=== PATIENT | female | born 1950 | race Hispanic/Latino ===

== ENCOUNTER 2023-08-30 10:55 | Inpatient (IN) | payer OTHER ==
[2023-08-30 19:07] VITALS: BMI 56.8
[2023-08-30 20:15] LABS: Specific Gravity 1.011 (1.005-1.030); Urine Bacteria <20 /HPF (<20); Urine Bilirubin NEGATIVE (Negative); Urine Blood Negative (Negative); Urine Clarity Clear (Clear); Urine Color Light-Yellow (Yellow); Urine Glucose NEGATIVE (Negative); Urine Protein NEGATIVE (Negative); Urine RBC <5 /HPF (None Seen); Urine Urobilinogen Normal (Normal); Urine pH 6.5 (5.0-7.0)
[2023-08-30] MEDS: NITROFURAN MACRO 100 MG CAP PO SCH (20:57)
[2023-08-30] MEDS: ESZOPICLONE 1 MG TAB PO SCH (20:58)
[2023-08-30] MEDS: PREGABALIN 75 MG CAP PO SCH (20:58)
[2023-08-30] MEDS: DOCUSATE NA 100 MG CAP PO SCH (20:58)
[2023-08-30] MEDS: PRAMIPEXOLE 0.25 MG TAB PO SCH (20:58)
[2023-08-31] MEDS: ENOXAPARIN 30 MG/0.3 ML SQ ONE (01:43)
[2023-08-31] MEDS: Enoxaparin 120 MG/0.8 ML SYR SQ ONE (01:43)
[2023-08-31 05:00] LABS: Absolute Lymphocytes (CBC) 1.2 K/uL (0.7-4.9); Hematocrit 25.6 % (36.0-45.0); Lymphocytes % 33.1 % (15.3-44.8); MCV 72.7 fL (80-100); MPV 7.2 fL (7.6-11.3); Platelets 219 thou/uL (152-406); RBC Red Blood Cell Count 3.52 M/uL (3.86-4.86)
[2023-08-31] MEDS: PANTOPRAZOLE 40MG TABLET PO SCH (05:08)
[2023-08-31 05:27] LABS: Albumin 2.4 g/dL (3.4-5.0); Magnesium 2.1 mg/dL (1.6-2.4); Potassium 3.7 mEq/L (3.5-5.1); Prealbumin 11.4 mg/dL (20-40)
[2023-08-31] MEDS ORDERED: POLYETHYL GLY 3350 17 GM/DOSE PO PRN (05:34)
[2023-08-31] MEDS ORDERED: BISACODYL 10 MG RECTAL SUPP PR PRN (05:34)
[2023-08-31] MEDS ORDERED: ENOXAPARIN 100 MG/ML SYR SQ SCH (08:00)
[2023-08-31] MEDS ORDERED: ENOXAPARIN 60 MG/0.6 ML SQ SCH (08:00)
[2023-08-31] MEDS: DOCUSATE NA/SENNA CONC 1 TAB PO SCH (08:05)
[2023-08-31] MEDS: oxyBUTYnin chloride 5 MG TAB PO SCH (08:05)
[2023-08-31] MEDS: APIXABAN 2.5 MG TABLET PO SCH ×2 (11:51→20:25)
[2023-08-31] MEDS: HYDROCODONE/APAP 10/325 TAB PO PRN (11:51)
[2023-08-31] MEDS ORDERED: GABAPENTIN 100 MG CAP PO SCH (20:00)
[2023-08-31] MEDS: MAGNESIUM OXIDE 400 MG TAB PO SCH (20:25)
--- NOTE | 2023-08-31 22:29 | RAD REPORT ---
EXAM DESCRIPTION: RAD - Foot Left 2 View - 08/31/2023 4:19 pm CLINICAL HISTORY: Left Foot pain FINDINGS: A limited two-view series was obtained. Bones are markedly osteoporotic. Cortical irregularity involves the bases of the fourth and fifth metatarsals. This could be secondary to osteomyelitis, inflammatory arthritis or probably less likely fracture. Further evaluation could be obtained with CT or MRI
[2023-08-31] MEDS: ONDANSETRON 4 MG (ODT) TAB PO PRN (23:44)
--- NOTE | 2023-09-01 00:29 | HP ---
Date of Admission: 08/30/2023 Time Of Service: 1:10 p.m. Chief Complaint: Urinary tract infection and became weak. History Of Present Illness: Ms. Mccarthy is a 73-year-old, right-handed, patient with depression, arthr itis, diabetes mellitus type 2, gastritis, dyslipidemia, osteoarthritis, chronic back pain, diabetes, hypertension, who fell in April 2023 and suffered a femur fracture. She was seen at [facility] and had surgery. She was put at nonweightbearing status and is discharged home to [facility] in [place]. She eventually discharged from there a week ago and went bhavin e. However, at home she was very significantly weak and she lives on her own and was unable to perfo rm ordinary activities of daily living safely. As a result, she had difficulty just mobilizing, gett ing from her recliner to mobilize wheelchair and suffered a fall out of her recliner. Emergency serv ices evaluated the patient. At that time, she felt her leg to be numb. She was seen at [facility] on August 28. Evaluation showed hypertension, acute cystitis with hematuria. She was carmine edin with Rocephin IV and had monitoring for encephalopathy related to the urinary tract infection. H er trauma series imaging showed no new fractures or unexpected findings. However, her Doppler study in the left lower extremity identified a deep vein thrombus and she was placed on Lovenox, which will be continued for 4 weeks and then transitioned to Xarelto. The alternative is Eliquis 5 mg twice da jaiden to continue for the 4 weeks. Given the low hemoglobin and hematocrit, she will require very clos e monitoring for the possibility of blood loss requiring transfusion. In addition, she has requireme nts for monitoring her blood glucose with calcium and possibility of worsening renal function. Prior to the patient's fall and fracture, she was independent with mobilization transfers and activities o f daily living. However, currently she requires moderate to maximum assistance for ordinary activiti es of daily living, for transferring, mobilizing, and dressing upper and lower body. As a result of the need for management of her multiple medical conditions and daily evaluation by physician and the need for physical therapy, she was determined to be appropriate candidate for inpatient rehabilitatio n, is therefore admitted for physical, occupational, and speech therapy. Past Medical History: As noted above in addition to left distal femur fracture on 05/15, status post open reduction and internal fixation. Deep vein thrombosis of the left lower extremity, morbid obes ity, chronic back pain, chronic peripheral neuropathy, overactive bladder, osteoarthrosis with bilate ral total knee arthroplasty, osteoarthrosis of the left hip, and peripheral venous insufficiency. Allergies: NO KNOWN DRUG ALLERGIES. Medications: Tylenol Extra Strength 500 mg 6 hours as needed, Eliquis is now 5 mg twice daily, Dulco lax suppository 10 mg per rectum as needed, Flexeril 10 mg twice daily as needed, Senokot S 2 twice d aily, Lunesta 3 mg at bedtime, gabapentin 100 mg twice daily, [place] 10/325 twice daily as needed, lid ocaine patch apply 2 topically daily, Milk of Magnesia 30 mL every 6 hours as needed, magnesium oxide 400 mg twice daily, Macrobid 100 mg twice daily, Zofran 4 mg every 6 hours as needed, Ditropan 10 mg daily, Protonix 40 mg daily, Mirapex 0.25 mg at bedtime, Lyrica 75 mg twice daily. Family History: Noncontributory. Social History: No alcohol, tobacco, or drug use. Patient lives alone, single family home. Laboratory Studies: White blood cell count 3.6, hemoglobin 8.4, platelets 219. Sodium 145, potassiu m 3.7, chloride 115, carbon dioxide 23, BUN 12, creatinine 0.67, glucose 109, calcium 7.7. Magnesium 2.1. Albumin 2.4, prealbumin 11.4. Urinalysis is completely normal. X-ray/imaging: She has a foot x-ray on the left that results are pending. Review of Systems: She did note foot pain more on the left. She does have x-ray with results pending. Some myalgias, a rthralgias. No rash. No current fevers or chills. Frequent urination is reported and she is being treated for that. No active psychiatric issues are uncontrolled and no other positives on a 10 point systems review. Current Level Of Functioning: Setup assistance for eating, oral hygiene. Dependent for toilet hygie ne. Bathing also dependent. Upper body dressing, moderate assistance. Lower body dressing, maximum assistance. Donning and doffing footwear, maximal assistance. Rolling right to left and left to ri ght, she is independent. For sit to stand and sit to lying, moderate assistance. Dependent for jesus r transfer to toilet as well. Ambulation with a rolling walker, maximum assistance, ambulated 1 foot . Physical Examination: Vital Signs: Blood pressure 178/56, pulse 69, respiratory rate of 17, temperature 97.2, oxygen satur ation 96%. Weight 321 pounds, height 5 feet 3 inches, BMI 56.9. General: Ms. Mccarthy is sitting in a chair, getting ready to do therapy. She did have some pain in th e left hip and in her feet and noted she had some imaging studies pending. She is morbidly obese. HEENT: Otherwise, she appears normocephalic and atraumatic. Sclerae anicteric. Oropharynx is moist . Neck: Supple. She has mild edema in the lower extremities and has very obese abdomen. Neurological: She has some give away in the left because of pain, unable to stand for short while an d has pain in the feet. Rehabilitation And Medical Assessment And Plan: Ms. Mccarthy is a 73-year-old patient with rehabilitati on impairment category 20, miscellaneous. Her impairment group code is 16, debility, noncardiac, non pulmonary. Her etiologic diagnosis is cystitis with hematuria. Comorbidities are anemia, arthritis, morbid obesity, chronic back pain, decreased mobility, decreased physical functioning, diabetes edin itus type 2, deep vein thrombosis, falls, gastroesophageal reflux disease, dyslipidemia, hypertension , osteoarthritis, peripheral neuropathy, restless legs syndrome, spinal stenosis, urinary incontinenc e, urinary tract infection, diffuse weakness. Plan: 1.She will have physical, occupational, and maybe speech therapy for 3.5 hours, 5 of 7 days. 2.We will continue with Eliquis 5 mg twice daily for her deep vein thrombosis, Dulcolax as needed fo r constipation, Flexeril for muscle spasms, Lunesta for insomnia. Instead of gabapentin, she will co ntinue on the pregabalin 75 mg twice daily and the dose of that medication will be adjusted as needed , Ditropan for urinary retention, Mirapex for restless legs syndrome, Macrobid for urinary tract infe ction, magnesium for her muscle relaxation, and lidocaine patches in the left hip and foot. Comorbidities That Are Impacting Her Re Rehabilitation: She does have morbid obesity making very dif ficult for easy standing and transfer and for healing. However, she is very willing to work hard and will have 2 person transfer as appropriate, will work on strengthening lower extremity with the weig htbearing status being touchdown at this point. She does have a deep vein thrombus and is on anticoa gulation. She will require hemoglobin and hematocrit monitoring and she has low hemoglobin as there is a high risk of a bleeding. She will have the pregabalin instead of the gabapentin for neuropathic pain. Rehab Specific Plan: 1.Ms. Mccarthy will have physical, occupational, and if need be speech therapy for 3.5 hours, 5 of 7 da ys. She will be with the goal of transferring from bed to chair, to toilet with minimum assistance t o mobilize a wheelchair 250 feet with min assist to ambulate at least household distances of 50 feet with supervision or minimal assistance. She may not be able to go up and down steps at this point. 2.She will have if need be speech therapy to help with cognitive functioning to help with safety gerald reness and managing medications as appropriate and additional followups as well. Ms. Mccarthy has a good understanding of the process of admission to the inpatient rehabilitation facili and how she may benefit from physical, occupational, and if need be, speech therapy. As dependent on how she is doing, the assistance of the infectious disease service, the pulmonary service and ort hopedic service may be required. Given her complex medical condition and risk of further complicatio ns, rehabilitation cannot be safely or affectively performed at a lower level facility such as [facility]. Barriers To Discharge: She is currently very morbidly obese and will likely be very difficult to man age all of her activities at home without risk of falling due to weakness in her lower extremities. Also, she has the need for ongoing anticoagulation that will likely last longer than she is in rehabi litation and so that will have to be continued outpatient or, depending on how she is doing, at [facility] facility. Length Of Stay: 14 days. Disposition: Home, but if need be, she may have to go to a fci facility. Prognosis: Fair. Rehabilitation Goals: 1.Be able to dress upper and lower body, toileting, showering, donning and doffing footwear with sup ervision or minimum assistance. 2.To be able to ambulate with minimum assistance 50 feet with a rolling walker. 3.To be able to propel a wheelchair with supervision 150 feet. 4.She may not be able to go up and down steps at the end of her evaluation. 5.She should be able to perform cognitive functioning independently. 6.The above goals were reviewed with Ms. Mccarthy and she is in agreement. By signing this document, I acknowledge I personally performed a full physical examination on Ms. Nicolas leslie no later than 24 hours after admission to the inpatient rehabilitation facility and determined wes t she is able to tolerate the above course of treatment at an intensive level for reasonable period o f time. A detailed individualized plan of care for her will be completed by hospital day 4 based on the preadmission screen, history and physical, and therapy evaluations. ABDI Voice ID: [id number]
[2023-09-01] MEDS: LIDOCAINE 4% PATCH TOP SCH (08:26)
[2023-09-01] MEDS: FE SULF/FA/VIT B COMP & C TAB PO SCH (08:53)
[2023-09-01] MEDS: FERROUS SULFATE 325 MG TAB PO SCH (08:53)
[2023-09-01] MEDS: ACETAMINOPHEN 500 MG TAB PO PRN (12:45)
--- NOTE | 2023-09-01 13:12 | P.RH.PN ---
Estimated Length of Stay: 16 Expected Discharge Date: 09/15/23 Discharge Disposition Plan: Home Family Support: Yes Penitentiary Goal: Mobility, Transfers, Self Care Vital Signs: Last Vital Signs Temp 97.0 F 09/01/23 08:00 Pulse 77 09/01/23 08:00 Resp 18 09/01/23 08:00 BP 111/56 L 09/01/23 08:00 Pulse Ox 96 09/01/23 08:00 Laboratory: Laboratory Last Values WBC 3.60 thou/uL (4.3-10.9) L 08/31/23 04:26 RBC 3.52 M/uL (3.86-4.86) L 08/31/23 04:26 Hgb 8.4 g/dL (12.0-15.0) L 08/31/23 04:26 Hct 25.6 % (36.0-45.0) L 08/31/23 04:26 MCV 72.7 fL (80-100) L 08/31/23 04:26 MCH 23.9 pg (27.0-35.0) L 08/31/23 04:26 MCHC 32.8 g/dL (32.0-36.0) 08/31/23 04:26 RDW 19.0 % (12.1-15.2) H 08/31/23 04:26 Plt Count 219 thou/uL (152-406) 08/31/23 04:26 MPV 7.2 fL (7.6-11.3) L 08/31/23 04:26 Neutrophils % 58.0 % (41.7-73.7) 08/31/23 04:26 Lymphocytes % 33.1 % (15.3-44.8) 08/31/23 04:26 Monocytes % 7.9 % (3.3-12.3) 08/31/23 04:26 Eosinophils % 0.2 % (0-4.4) 08/31/23 04:26 Basophils % 0.8 % (0-1.3) 08/31/23 04:26 Absolute Neutrophils 2.1 K/uL (1.8-8.0) 08/31/23 04:26 Absolute Lymphocytes 1.2 K/uL (0.7-4.9) 08/31/23 04:26 Absolute Monocytes 0.3 K/uL (0.1-1.3) 08/31/23 04:26 Absolute Eosinophils 0.0 K/uL (0-0.5) 08/31/23 04:26 Absolute Basophils 0.0 K/uL (0-0.5) 08/31/23 04:26 Sodium 145 mEq/L (136-145) 08/31/23 04:26 Potassium 3.7 mEq/L (3.5-5.1) 08/31/23 04:26 Chloride 115 mEq/L (98-107) H 08/31/23 04:26 Carbon Dioxide 23 mEq/L (21-32) 08/31/23 04:26 Anion Gap 10.7 mEq/L (5.0-15.0) 08/31/23 04:26 BUN 12 mg/dL (7-18) 08/31/23 04:26 Creatinine 0.67 mg/dL (0.55-1.02) 08/31/23 04:26 Est GFR (CKD-EPI) 91 ml/min (=/>90) 08/31/23 04:26 Glucose 109 mg/dL (74-106) H 08/31/23 04:26 Calcium 7.7 mg/dL (8.5-10.1) L 08/31/23 04:26 Magnesium 2.1 mg/dL (1.6-2.4) 08/31/23 04:26 Albumin 2.4 g/dL (3.4-5.0) L 08/31/23 04:26 Prealbumin 11.4 mg/dL (20-40) L 08/31/23 04:26 Urine Color Light-yellow (Yellow) 08/30/23 19:53 Urine Clarity Clear (Clear) 08/30/23 19:53 Urine pH 6.5 (5.0-7.0) 08/30/23 19:53 Ur Specific [place] 1.011 (1.005-1.030) 08/30/23 19:53 Glucose (UA)(Auto) Negative (Negative) 08/30/23 19:53 Urine Ketones Negative (Negative) 08/30/23 19:53 Urine Blood Negative (Negative) 08/30/23 19:53 Urine Nitrite Negative (Negative) 08/30/23 19:53 Urine Bilirubin Negative (Negative) 08/30/23 19:53 Urine Urobilinogen Normal (Normal) 08/30/23 19:53 Ur Leukocyte Esterase Negative Emelina/uL (Negative) 08/30/23 19:53 Urine RBC <5 /HPF (None Seen) 08/30/23 19:53 Urine WBC <5 /HPF (<5) 08/30/23 19:53 Ur Squamous Epith Cells <5 /HPF (None Seen) 08/30/23 19:53 Urine Bacteria <20 /HPF (<20) 08/30/23 19:53 Urine Culture Reflexed Not needed 08/30/23 19:53 Urine Total Protein Negative (Negative) 08/30/23 19:53 Weight: 321 lb Wound Present: Yes Physician Update: On Eliquis 5 mg bid for DVT and PE treatment. Low protein on supplementation. BIMS 15, SLUMS 26, 90% on Vidal Naming Test. Dependent on transfers, bed mobility. Min assistance supine to sit and to transfer to wheelchair. Summary: Patient's care plan and fdc goals have been reviewed and revised as necessary. Please see the Rehabilitation Signature page for all necessary signatures.
--- NOTE | 2023-09-01 16:31 | RAD REPORT ---
EXAM DESCRIPTION: CT - Foot Left Wo Con - 09/01/2023 4:23 pm CLINICAL HISTORY: r//o osteomyelitis or fracture Pain and swelling COMPARISON: No comparisons FINDINGS: Prominent diffuse osteopenia. Large calcaneal spurs. No fracture or dislocation seen. No e vidence of osteomyelitis. IMPRESSION: Moderate soft tissue edema inflammation is present. Large calcaneal spurs. No evidence o f osteomyelitis.
[2023-09-01] MEDS: HYDROCODONE/APAP 5/325 MG TAB PO PRN (19:50)
[2023-09-01] MEDS: JUVEN PACKET PO SCH (19:51)
[2023-09-01] MEDS: MAGNES/ALUMIN/SIMET 30ML UCUP PO PRN (19:57)
[2023-09-01] MEDS ORDERED: GLUCERNA SHAKE 237 ML CAN PO SCH (20:00)
[2023-09-02] MEDS: PANTOPRAZOLE 40MG TABLET PO SCH (06:49)
[2023-09-02] MEDS: ENSURE MAX PROTEIN 330 ML LIQUID PO SCH (08:00)
[2023-09-02] MEDS: HYDROCODONE/APAP 5/325 MG TAB PO PRN (12:02)
[2023-09-03] MEDS: CRANBERRY FRUIT EXTRACT 200 MG CAP PO SCH (08:51)
[2023-09-03] MEDS: APIXABAN 5 MG TABLET PO SCH (19:53)
[2023-09-04] MEDS: CYCLOBENZAPRINE 10 MG TAB PO PRN (16:48)
--- NOTE | 2023-09-04 22:12 | PN ---
Date of Progress Note: 09/04/2023 Time Of Service: 1:15 p.m. Subjective: Ms. Mccarthy is sitting in a wheelchair beside the bed. She does report some left hip pain where the left hip was impacted after a fall and she does have some swelling in the left lower extre mity, where she has a deep vein thrombosis and there is redness distally in the left foot. The findi ngs of her imaging study of the left foot were discussed, which was CT scan showing no evidence of in fection there. She also did have prior imaging of the left hip showing no fracture, but there is bru ising and she leans to the right just trying to offload the hip on the left which is touching the zan e of the wheelchair, although she does have a very large wheelchair. The hip is still resting agains t the side of the wheelchair. Objective: Again, some pain in the left foot, but no nausea and vomiting. There is some myalgias, a rthralgias as noted on the left side, worse on the right lower extremity, bruising and some hyperemia in the left medial foot. Otherwise, no fevers or chills. No active psychiatric issues. Physical Examination: Vital Signs: Blood pressure 133/63, pulse 68, respiratory rate 18, temperature 97.5, oxygen saturati on 97%. Weight 311 pounds. Height 5 feet 3 inches. BMI is 55.1, indicating extreme obesity. General: Ms. Mccarthy again is resting in a chair. HEENT: She appears normocephalic, atraumatic. Sclerae anicteric. Oropharynx pink and moist. Neck: Supple. Chest: Good air movement. Abdomen: Soft. Extremities: She has significant edema in the left calf area with pain on tenderness to palpation. Some swelling in the left ankle medially and in the foot with some tenderness to palpation as well. However, she has full range of motion noted in the ankle, left and right. Laboratory Studies: White blood cell count 6.3, hemoglobin 8.4, platelets 219. Sodium 145, potassiu m 3.7, chloride 115, carbon dioxide 23, BUN 12, creatinine 0.67, prealbumin 11.4, albumin 2.4. Urina lysis is normal. Foot CT scan was as noted. Medications: Tylenol 500 mg every 6 hours as needed, [place] 5/325 every 4 hours as needed, Maalox 30 mL every 6 hours for indigestion, Eliquis 5 mg twice daily for DVT in the left leg, Flexeril 10 mg tw ice daily, Dulcolax 10 mg daily, Lunesta 3 mg at night, ferrous sulfate 325 mg daily, magnesium oxide 400 mg twice daily, Hemocyte Plus twice daily, Macrobid 100 mg twice daily, Zofran 4 mg every 4 hour s as needed, Ditropan 10 mg daily, Protonix 40 mg daily, pramipexole 0.25 mg at bedtime, Lyrica 75 mg twice daily, Ensure Enlive 330 mL daily, Senokot-S 2 twice daily. Progress Made With Physical And Occupational Along With Speech Therapy: Today, with physical therapy , she was able to mobilize a wheelchair 150 feet twice with standby assistance. She performed bilate ral sitting exercises with the lower extremities with 20 reps. Adqoos-rz-zwr was maximum assistance, jco-xo-[id number] transfers with a rolling walker with maximum assistance. With occupational therapy, mo derate assistance for [id number]-lf-ttr at edge of bed. Minimum assistance for [id number]-dp-qovmp and pivot tr ansfers in the afternoon. With speech, she used word retrieval strategies and circumlocution to name 10 items per abstract category with moderate cues, convergent naming skills used with 100% accuracy for abstract categories. Ms. Mccarthy is making fair progress, but limited significantly by extreme obesity and pain in the left leg, where she has deep vein thrombosis and is on Eliquis. Also, has left hip pain, but no fracture, and that is from impact after a fall. She has significant decreased ability to stand and mobilize a nd making it difficult for her to thrive. However, she is mobilizing much better by wheelchair. Assessment: Ms. Mccarthy is a 73-year-old patient, admitted to rehabilitation with UTI and cystitis and hematuria. She has anemia, arthritis, extreme obesity, chronic back pain, left lower extremity deep vein thrombosis, gout, GE reflux, dyslipidemia, hypertension, peripheral neuropathy, restless legs s yndrome, urinary infection, diffuse weakness. Plan: 1.She will continue with physical, occupational, and speech therapy as noted for 3.5 hours, 5 of 7 d ays. 2.She has multiple comorbid conditions which are listed above and those will be continued including the Eliquis 5 mg twice daily for DVT prophylaxis. Continue with Flexeril for muscle spasm and Lunest a for insomnia, Lyrica 75 mg twice daily for neuropathic pain, Mirapex for restless legs, Macrobid is completed for urinary tract infection. She has muscles relaxants for muscle spasms, lidocaine patch es. Comorbidities That Are Continuing To Impact Her Rehabilitation: At this point, the likely biggest is el is her multiple factors including left leg deep vein thrombosis with a risk of pulmonary embolism into the lungs and morbid extreme obesity making it difficult for her to stand and mobilize. Rogelio booth, she is working hard and is likely to still improve. BIJU/LUZ Voice ID: [id number] Report ID: [id number]
[2023-09-05] MEDS: PREGABALIN 50 MG CAP PO SCH (19:58)
[2023-09-06] MEDS: NYSTATIN OINT 15 GM TUBE TOP SCH (11:10)
--- NOTE | 2023-09-06 21:46 | PN ---
Date of Progress Note: 09/06/2023 Time Of Service: 1:10 p.m. Subjective: Ms. Mccarthy is in a chair in the gym. She reports still some ongoing pain in the left hip , knee, and leg, where she has a deep vein thrombus in the left leg. She does report much improved i n the redness in her ankle. She did have CT scan of the left foot showing no evidence of infection, but there is bruising there and there is no osteomyelitis. Review of Systems: No fevers or chills. Just pain as noted in the left leg, some swelling also, and pain in the calf as she tries to do a ejr-sa-nfrff transfer. Otherwise, denies any significant fevers or chills. Physical Examination: Vital Signs: Blood pressure 123/58, pulse 75, respiratory rate 16, temperature 97.4, oxygen saturati on 96%. General: Ms. Mccarthy again sitting is in a chair in the gym. HEENT: She appears normocephalic, atraumatic. Sclerae are anicteric. Oropharynx pink and moist. Extremities: The left lower extremity shows moderate edema, pitting with some swelling in the calf a nd redness as noted. Laboratory Studies: Yesterday, blood sugars 123. X-ray/imaging: No new x-rays or imaging. Medications: Her medications have been reviewed and remain unchanged. She does have Lyrica 100 mg t wice daily, Mirapex 0.25 mg at night for restless legs. She has oxybutynin for her urinary retention , Macrobid for urinary tract infection, lidocaine patch for pain in the left leg. She has Eliquis 5 mg twice daily for DVT treatment and for prophylaxis. She has [place] 5/325 every 4 hours as needed fo r pain. In addition, Flexeril 10 mg twice daily as needed for muscle spasms and Lunesta for insomnia at night. Progress Made With Physical And Occupational Along With Speech Therapy: Today with physical therapy, she did have tsanws-hk-yae transfers with maximum assistance, bed to wheelchair transfer with maximu m assistance. She mobilized a wheelchair 175 feet with standby assistance. With occupational therap y, minimum assistance for [id number]-[id number], lower body dressing training was done. Instructed on the use of a lens inspector. She did require frequent cues. With speech, she completed her homework with speech t herapist with word finding tasks with 87% accuracy. She had word-finding issue with word-finding tas ks for low frequency words and she had a score of 88%. Ms. Mccarthy is making fair progress with physical, occupational, and speech therapy. She has big chall enge with very elevated BMI of 55.1. She has left hip pain, but no fracture and left lower extremity DVT. Assessment: Ms. Mccarthy is a 73-year-old patient in the rehabilitation unit with urinary tract infecti on with cystitis, hematuria, anemia, arthritis, extreme obesity, chronic back pain, left lower extrem ity deep vein thrombosis, gout, GE reflux, dyslipidemia, hypertension, peripheral neuropathy, restles s legs syndrome. Plan: 1.She will continue with physical, occupational, and speech therapy for 3.5 hours, 5 of 7 days. 2.Her antibiotics can continue per protocol, Eliquis, also continue with DVT prophylaxis. She has m uscle spasms relieved by Flexeril, Lunesta for insomnia, Lyrica has been adjusted for neuropathic jf n, Mirapex for restless legs and Macrobid for infection. Comorbidities That Are Continuing To Impact Rehabilitation: The left lower extremity deep vein throm bosis and morbid obesity making it difficult for her to thrive and do very well, but she is still wor don hard. BIJU/LUZ Voice ID: [id number] Report ID: [id number]
--- NOTE | 2023-09-07 21:13 | PN ---
Date of Progress Note: 09/07/2023 Time Of Service: 1:20 p.m. Subjective: Ms. Mccarthy is resting comfortably. She is in no significant distress. She appears normo cephalic, atraumatic. Sclerae anicteric. Objective: No fevers, chills, nausea, vomiting, myalgias, arthralgias, rash, headache, or weight tarik nge. Physical Examination: Vital Signs: Blood pressure 121/57, pulse of 68, respiratory rate 18, temperature 97.4, oxygen satur ation 96%. As noted previously, she has extreme obesity, BMI of 55, weight of 315 pounds, and 5 feet 3 inches. Extremities: She was in the gym today and had less pain in the left lower extremity, where there is deep vein thrombosis, less redness in the left leg. Still has some pain in the left hip area where s he tends to sit towards the shifting to the right side to offload the left hip where she has 1 pain p atch placed there. Laboratory Studies: No new laboratory studies. X-ray/imaging: No new x-rays or imaging. Medications: Her medications have been reviewed and remain unchanged except she has nystatin ointmen t, now apply twice daily as needed, in addition to the medications previously being continued. Progress Made With Physical And Occupational Therapy: Today with occupational therapy, bathing minim um assistance, she was independent for upper body dressing and grooming. In terms of physical therap y, completed gait training, bilateral platform walker with maximum assistance. She did ambulate 4 fe et, 5 feet, 6 feet, 7 feet, and 12 feet. Mobilized a wheelchair 80 feet with standby assistance. Wi speech, she demonstrated retrieval skills for low-frequency words with 80% accuracy. She recalled 4 units of information with 80% accuracy and moderate verbal cues. Short-term recall demonstrated f or relevant events with 90% accuracy. Ms. Mccarthy is making fair progress with physical, occupational, and speech therapy. Assessment: Ms. Mccarthy is a 73-year-old patient in the rehabilitation unit with urinary tract infecti on and sepsis related to that. She has cystitis, hematuria, anemia, arthritis, again extreme obesity , chronic back pain, left lower extremity deep vein thrombus, gout, GE reflux, dyslipidemia, hyperten elvis, peripheral neuropathy, restless legs syndrome. Plan: 1.She will have physical, occupational, and speech therapy, 3.5 hours, 5 of 7 days continued. 2.She is on multiple medications which have been noted before including antibiotics and neuromodulat ors, medication for DVT prophylaxis, for restless legs, and for insomnia and constipation. Comorbidities That Are Continuing To Impact Her Rehabilitation: Left lower extremity DVT is improvin g, but still somewhat of a limitation in terms of being able to ambulate without significant pain in the left leg and actually left hip. In addition, her morbid extreme obesity making it difficult for her to thrive very quickly. LB/MODL Voice ID: [id number] Report ID: [id number]
--- NOTE | 2023-09-08 13:21 | P.RH.PN ---
Estimated Length of Stay: 16 Expected Discharge Date: 09/14/23 Discharge Disposition Plan: Home Vital Signs: Last Vital Signs Temp 97.3 F 09/08/23 08:00 Pulse 74 09/08/23 08:00 Resp 18 09/08/23 12:46 BP 112/53 L 09/08/23 08:00 Pulse Ox 96 09/08/23 12:46 Laboratory: Laboratory Last Values WBC 3.60 thou/uL (4.3-10.9) L 08/31/23 04:26 RBC 3.52 M/uL (3.86-4.86) L 08/31/23 04:26 Hgb 8.4 g/dL (12.0-15.0) L 08/31/23 04:26 Hct 25.6 % (36.0-45.0) L 08/31/23 04:26 MCV 72.7 fL (80-100) L 08/31/23 04:26 MCH 23.9 pg (27.0-35.0) L 08/31/23 04:26 MCHC 32.8 g/dL (32.0-36.0) 08/31/23 04:26 RDW 19.0 % (12.1-15.2) H 08/31/23 04:26 Plt Count 219 thou/uL (152-406) 08/31/23 04:26 MPV 7.2 fL (7.6-11.3) L 08/31/23 04:26 Neutrophils % 58.0 % (41.7-73.7) 08/31/23 04:26 Lymphocytes % 33.1 % (15.3-44.8) 08/31/23 04:26 Monocytes % 7.9 % (3.3-12.3) 08/31/23 04:26 Eosinophils % 0.2 % (0-4.4) 08/31/23 04:26 Basophils % 0.8 % (0-1.3) 08/31/23 04:26 Absolute Neutrophils 2.1 K/uL (1.8-8.0) 08/31/23 04:26 Absolute Lymphocytes 1.2 K/uL (0.7-4.9) 08/31/23 04:26 Absolute Monocytes 0.3 K/uL (0.1-1.3) 08/31/23 04:26 Absolute Eosinophils 0.0 K/uL (0-0.5) 08/31/23 04:26 Absolute Basophils 0.0 K/uL (0-0.5) 08/31/23 04:26 Sodium 145 mEq/L (136-145) 08/31/23 04:26 Potassium 3.7 mEq/L (3.5-5.1) 08/31/23 04:26 Chloride 115 mEq/L (98-107) H 08/31/23 04:26 Carbon Dioxide 23 mEq/L (21-32) 08/31/23 04:26 Anion Gap 10.7 mEq/L (5.0-15.0) 08/31/23 04:26 BUN 12 mg/dL (7-18) 08/31/23 04:26 Creatinine 0.67 mg/dL (0.55-1.02) 08/31/23 04:26 Est GFR (CKD-EPI) 91 ml/min (=/>90) 08/31/23 04:26 Glucose 109 mg/dL (74-106) H 08/31/23 04:26 POC Glucose 123 mg/dL (65-120) H 09/05/23 19:29 Calcium 7.7 mg/dL (8.5-10.1) L 08/31/23 04:26 Magnesium 2.1 mg/dL (1.6-2.4) 08/31/23 04:26 Albumin 2.4 g/dL (3.4-5.0) L 08/31/23 04:26 Prealbumin 11.4 mg/dL (20-40) L 08/31/23 04:26 Urine Color Light-yellow (Yellow) 08/30/23 19:53 Urine Clarity Clear (Clear) 08/30/23 19:53 Urine pH 6.5 (5.0-7.0) 08/30/23 19:53 Ur Specific [place] 1.011 (1.005-1.030) 08/30/23 19:53 Glucose (UA)(Auto) Negative (Negative) 08/30/23 19:53 Urine Ketones Negative (Negative) 08/30/23 19:53 Urine Blood Negative (Negative) 08/30/23 19:53 Urine Nitrite Negative (Negative) 08/30/23 19:53 Urine Bilirubin Negative (Negative) 08/30/23 19:53 Urine Urobilinogen Normal (Normal) 08/30/23 19:53 Ur Leukocyte Esterase Negative Emelina/uL (Negative) 08/30/23 19:53 Urine RBC <5 /HPF (None Seen) 08/30/23 19:53 Urine WBC <5 /HPF (<5) 08/30/23 19:53 Ur Squamous Epith Cells <5 /HPF (None Seen) 08/30/23 19:53 Urine Bacteria <20 /HPF (<20) 08/30/23 19:53 Urine Culture Reflexed Not needed 08/30/23 19:53 Urine Total Protein Negative (Negative) 08/30/23 19:53 Weight: 311 lb Wound Present: Yes Closed Surgical Incision Present: No Negative Pressure Wound Therapy Present: No Physician Update: Labs were reviewed and are stable. Very poor ambulation due to left leg DVT and morbid obesity. Summary: Patient's care plan and terminal makeup operator goals have been reviewed and revised as necessary. Please see the Rehabilitation Signature page for all necessary signatures.
[2023-09-10 04:12] LABS: Absolute Lymphocytes (CBC) 1.5 K/uL (0.7-4.9); Hematocrit 27.7 % (36.0-45.0); Lymphocytes % 29.7 % (15.3-44.8); MCV 74.6 fL (80-100); MPV 7.2 fL (7.6-11.3); Platelets 221 thou/uL (152-406); RBC Red Blood Cell Count 3.72 M/uL (3.86-4.86)
[2023-09-10 04:25] LABS: Potassium 3.9 mEq/L (3.5-5.1)
[2023-09-11] MEDS: POTASSIUM CL SA 10 MEQ TAB PO ONE (11:56)
[2023-09-11] MEDS: PREGABALIN 150 MG CAP PO SCH (19:40)
--- NOTE | 2023-09-12 03:21 | PN ---
Date of Progress Note: 09/11/2023 Time Of Service: 1:10 p.m. Subjective: Ms. Mccarthy is ambulating with a physical therapist. She reports 10/10 pain as she ambula annika. Pain is in the left hip area and she has some pain in the left leg which is improved where she has DVT. The staff did report she had significant areas of streak like redness in the pelvic region where her Adult Depends are along the skin. Those are probably related to urination and the high deg ree of stress contact to the area. She does have Mycostatin and a skin barrier protection applied. Objective: Again, pain in the lower extremities and in the left hip and some difficulty with mobiliz ation, also significantly weak in the lower extremities, very difficult to stand, only ambulating abo ut 5 feet up to 10 feet at the most with max assist. Physical Examination: Vital Signs: Blood pressure 116/57, pulse 85, respiratory rate 16, temperature 97.1, oxygen saturati on 93%. Weight 311 pounds. Height 5 feet 3 inches. BMI 55.1. General: Ms. Mccarthy is very difficult to make steps, very short steps with very slow vick while be ing forward on bilateral platform walker. The physical therapist was in toe with gait belt and wheel chair behind. She did have her areas of the groin examined. There were linear streaks of hyperemia, likely matching along the hip where the Adult Depends makes close contact with the skin. Those area s being offloaded and cleaned and dressed with a topical barrier including the Mycostatin ointment ap ply topically twice daily. Medications: Her medications have been reviewed and remained unchanged except she has Lyrica, now in creased to 150 mg twice daily from 100 mg twice daily given her 10/10 pain. She also has [place] 5/325 every 4 hours as needed. Regular Tylenol is also on board. In addition, she has 2 lidocaine patche s on the left hip for pain. X-ray/imaging: No new x-rays or imaging. Laboratory Studies: Yesterday, white blood cell count 5.0, hemoglobin 9.0, platelets 221. Sodium 13 9, potassium 3.9, chloride 111, carbon dioxide 24, BUN 11, creatinine 0.54, glucose 119, calcium 8.1. Progress Made With Physical And Occupational Therapy Along With Speech Therapy: Today with physical therapy, she completed transfers sit to stand with maximum assistance to moderate assistance. Turnin g from [id number] maximum assistance. With rolling walker, she ambulated 4 feet and 6 feet with mo derate to max assist. [id number] done with moderate assistance. With occupational therapy, she is independent with upper body dressing, minimum assistance with bathing, assistance to wash, rinse, an d dry buttocks. With speech, she maintained 15 on the BIMS and her SLUMS score increased to 27. Her cognitive impairment is now within normal limits. Ms. Mccarthy is making great progress for cognitive therapy and somewhat slower progress with physical a nd occupational therapy. She is still at very high risk of falling and injury if she were to be vinayak e at home. The patient is now contemplating fpc, which would likely benefit her as she h as improved strength and decreased her dependence on assistance just for basic transfers and mobilizi ng household distances. She is currently not able to ambulate more than about 6 feet at a time witho ut having to sit and that requires moderate to max assist. Assessment: Ms. Mccarthy is a 73-year-old patient admitted to the inpatient rehabilitation unit with ur inary tract infection and significant debility, morbid obesity, chronic back pain, left hip pain, lef t lower extremity deep vein thrombosis, GE reflux, dyslipidemia, hypertension, peripheral neuropathy, restless legs syndrome. Plan: 1.She will continue to have physical, occupational, and speech therapy for 3.5 hours, 5 of 7 days. 2.She will continue her multiple medications which have been listed previously for her comorbid cond itions. Comorbidities That Are Continuing To Impact Her Rehabilitation: Currently, she does have an area of skin breakdown in the perineal region, that is addressed by the Mycostatin and topical steroid as wel tariq. She is again very maximal assist requiring basic transfers and taking care of herself at home and would not be well served as she is to be discharged home at this point, so she is looking for fpc and is in agreement with kristin marshall. BIJU/LUZ Voice ID: [id number] Report ID: [id number]
--- NOTE | 2023-09-13 03:26 | PN ---
Date of Progress Note: 09/12/2023 Time Of Service: 1:10 p.m. Subjective: Ms. Mccarthy is back in bed after a therapy session. She reports less pain in the left hip and lower extremity where she has DVT. She also had some burning in the groin area where she has a likely dermatitis related to where the adult pull-ups may close contact with the skin. Objective: No fevers or chills. Mild myalgias, arthralgias. No new rash, headache, or psychiatric complaints. Physical Examination: Vital Signs: Blood pressure 102/55, pulse 67, respiratory rate 16, temperature 97, oxygen saturation 97%. General: Ms. Mccarthy is resting comfortably in bed. HEENT: She appears normocephalic, atraumatic. Sclerae anicteric. Lungs: Decreased breath sounds. Abdomen: Soft. Extremities: She has mild edema in the lower extremities. She has diffuse weakness in the lower ext remities. Again, she has a BMI of 55. Laboratory Studies: No new laboratory studies. X-ray/imaging: No new x-rays or imaging. Medications: Her medications were reviewed. She did have Lyrica increased to 150 mg twice daily, wh ich made a significant difference in her pain and she was able to sleep much better. Otherwise, all medications have been continued unchanged. Progress Made With Physical And Occupational Therapy: Today with her physical therapy, she was able to mobilize a wheelchair 150 feet with modified independence. She did wheelchair to bed transfer wit h contact guard assistance, [id number] with minimum assistance. With occupational therapy, she di d 3 [id number], toilet hygiene, but fatigued requiring maximum assistance. With her speech therap y, short-term recall to name 4/4 unrelated pictures after 5 minutes. Working memory, used to recall 4 units of information with 80% accuracy and minimum assistance. Ms. Mccarthy is making better progress today with physical, occupational, and speech therapy. She is si gnificantly limited by a very elevated BMI of 55, making it very difficult for her ambulate more than about 5 feet at a time without needing to sit and rest. The patient will likely have to be home wit h family and so family members are encouraged to come by and participate in some family training. Assessment: Ms. Mccarthy is a 73-year-old patient in the rehabilitation unit with urinary tract infecti on, significant debility, morbid obesity, chronic back pain, left hip pain, left lower extremity deep vein thrombosis with edema, GE reflux, dyslipidemia, hypertension, peripheral neuropathy, restless l egs syndrome. Plan: 1.Continue with physical, occupational, and speech therapy for 3.5 hours, 5 of 7 days. 2.Her medications addressing comorbid conditions will be continued including Senokot S for constipat ion, Lyrica 150 mg twice daily for neuropathic pain, Mirapex for restless legs syndrome, Protonix for GE reflux, Ditropan for her urinary retention, Hemocyte Plus for anemia, magnesium oxide for muscle spasms, ferrous sulfate for anemia, Eliquis 5 mg twice daily for her deep vein thrombosis, and [place] and Tylenol as needed for pain. Comorbidities That Are Continuing To Impact Rehabilitation: Currently, she is significantly limited in her ability to mobilize due to elevated BMI of 55 with a rolling walker, but she mobilizes better with a wheelchair and is working on improving transfers and likely will be manageable at home, but wi ll require 24-hour help at least until she is able to stand and ambulate significant distances to get from bed to commode to shower at home. BIJU/LUZ Voice ID: [id number] Report ID: [id number]
[2023-09-13] MEDS ORDERED: GUAIFENESIN/DM 5 ML UCUP PO PRN (13:57)
[2023-09-13] MEDS: BENZONATATE 100 MG CAP PO PRN (13:59)
[2023-09-13] MEDS: DOCUSATE NA/SENNA CONC 1 TAB PO PRN (19:09)
[2023-09-14 06:53] VITALS: BP 109/59; TEMP 97.2
[2023-09-14 08:06] LABS: Absolute Lymphocytes (CBC) 1.3 K/uL (0.7-4.9); Hematocrit 29.2 % (36.0-45.0); Lymphocytes % 29.9 % (15.3-44.8); MCV 75.1 fL (80-100); MPV 7.2 fL (7.6-11.3); Platelets 216 thou/uL (152-406)
[2023-09-14 08:25] LABS: Albumin 2.6 g/dL (3.4-5.0); Magnesium 2.4 mg/dL (1.6-2.4); Potassium 4.4 mEq/L (3.5-5.1); Prealbumin 10.2 mg/dL (20-40)
[2023-09-14 08:37] LABS: Anisocytosis 1+; Blood Morphology Comment NOTED (NOT SEEN); Platelet Estimate ADEQ; Polychromasia 1+; White Blood Cell Scan OK (OK)
--- NOTE | 2023-09-14 09:13 | P.CNS ---
Date of Consult: 09/14/23 Reason for Consult: painful toenails Allergies No Known Allergies Allergy (Unverified 08/30/23 18:59) Home Medications: Bismuth Subsalicylate [Maalox] 525 mg PO Q6H PRN 08/31/23 Cyclobenzaprine [Flexeril] 10 mg PO BID 08/31/23 Docusate [Colace Cap] 100 mg PO BID 08/31/23 Enoxaparin Sodium [Lovenox 150 MG Syr] 160 mg SQ BID 08/31/23 Eszopiclone [Lunesta] 3 mg PO BEDTIME 08/31/23 Hydrocodone 10/APAP 325 [[place] 10/325] 1 tab PO BID 08/31/23 Omeprazole [Prilosec] 40 mg PO DAILY 08/31/23 Pramipexole [Mirapex] 0.25 mg PO BEDTIME 08/31/23 Pregabalin [Lyrica] 75 mg PO BID 08/31/23 oxyBUTYnin chloride [Ditropan Xl] 10 mg PO DAILY 08/31/23 - Past Medical/Surgical History Diabetic: No -: covid sob -: uti -: juan diego PE -: lt leg cellulitis -: s/p fall -: fx leg femur -: obesity -: chronic back pain OA -: lt leg dvt -: acute cystitis w/ hematuria -: anemia -: s/p juan diego knee replacement -: lt hip replacement - Social History Alcohol use: No CD- Drugs: No Caffeine use: Yes Place of Residence: Home Review of Systems 10-point ROS is otherwise unremarkable Physical Examination Temp Pulse Resp BP Pulse Ox 97.2 F 71 15 109/59 L 96 09/14/23 06:41 09/14/23 06:41 09/14/23 06:41 09/14/23 06:41 09/14/23 06:41 General: Alert, In no apparent distress, Oriented x3 Cardiovascular: No edema, Normal pulses Capillary refill: <2 Seconds Musculoskeletal: No clubbing, No swelling, No contractures, No erythema, No tenderness, No warmth Integumentary: No rashes, No breakdown, No significant lesion, No tenderness/swelling, No erythema, No warmth, No cyanosis, Other (Thickened hyp ertrophic nails with subungual debris x 10) Neurological: Sensation intact Laboratory Data (last 24 hrs) 09/14/23 09/14/23 07:44 07:44 WBC 4.20 L Hgb 9.7 L Hct 29.2 L Plt Count 216 Sodium 141 Potassium 4.4 BUN 13 Creatinine 0.66 Glucose 130 H Magnesium 2.4 - Problems (1) Tinea unguium Current Visit: Yes Status: Acute (2) halfway (current) use of anticoagulants Current Visit: Yes Status: Acute Conclusions/Impression: Mechanical debridement of nails x 10 at bedside
== END 2023-09-14 11:25 | disposition home health service (06) | DRG 690 ==
LOC: 5TH 18:52
PROVIDERS: ADMIT Psychiatry & Neurology Neurology with Special Qualifications in Child Neurology; ATTEND Psychiatry & Neurology Neurology with Special Qualifications in Child Neurology
PROC: 0HBRXZZ Excision of Toe Nail, External Approach (ICD-10-PCS; principal; 2023-09-14)
PROC: 0HBRXZZ Excision of Toe Nail, External Approach (ICD-10-PCS; 2023-09-14)
PROC: 0HBRXZZ Excision of Toe Nail, External Approach (ICD-10-PCS; 2023-09-14)
PROC: 0HBRXZZ Excision of Toe Nail, External Approach (ICD-10-PCS; 2023-09-14)
PROC: 0HBRXZZ Excision of Toe Nail, External Approach (ICD-10-PCS; 2023-09-14)
PROC: 0HBRXZZ Excision of Toe Nail, External Approach (ICD-10-PCS; 2023-09-14)
PROC: 0HBRXZZ Excision of Toe Nail, External Approach (ICD-10-PCS; 2023-09-14)
PROC: 0HBRXZZ Excision of Toe Nail, External Approach (ICD-10-PCS; 2023-09-14)
PROC: 0HBRXZZ Excision of Toe Nail, External Approach (ICD-10-PCS; 2023-09-14)
PROC: 0HBRXZZ Excision of Toe Nail, External Approach (ICD-10-PCS; 2023-09-14)
DX: N30.91 Cystitis, unspecified with hematuria (principal); I82.402 Acute embolism and thrombosis of unspecified deep veins of left lower extremity; Z68.43 Body mass index [BMI] 50.0-59.9, adult; B35.1 Tinea unguium; K59.00 Constipation, unspecified; R53.81 Other malaise; F32.A Depression, unspecified; M19.90 Unspecified osteoarthritis, unspecified site; E11.9 Type 2 diabetes mellitus without complications; E78.5 Hyperlipidemia, unspecified; G89.29 Other chronic pain; I10 Essential (primary) hypertension; E66.01 Morbid (severe) obesity due to excess calories; G62.9 Polyneuropathy, unspecified; K21.9 Gastro-esophageal reflux disease without esophagitis; G25.81 Restless legs syndrome; R32 Unspecified urinary incontinence; M62.838 Other muscle spasm; G47.00 Insomnia, unspecified
CPT/HCPCS: 36415; 73700; 80048; 81001; 82040; 82947; 83735; 84134; 85025; 87086; 87088; 92523; 97110; 97116; 97129; 97163; 97165; 97530; 97542; J1650; J2001; Q0162